=== PATIENT | female | born 1950 | race Two or more races ===

== ENCOUNTER 2023-02-27 00:21 | Inpatient (IN) | payer OTHER ==
[~2023-02-27] VITALS: Ht 162.6 cm; Wt 120.6 kg
[2023-02-27] MEDS ORDERED: PIPERACILLIN-TAZOB 3.375GM 100 ML IV ONE (00:45)
[2023-02-27] MEDS ORDERED: IBUPROFEN 600 MG TAB PO ONE (00:45)
[2023-02-27] MEDS ORDERED: LACTATED RINGER'S 2,750 ML IV ONE (00:45)
[2023-02-27] MEDS ORDERED: VANCOMYCIN 1GM/250ML 250 ML IV ONE (00:45)
[2023-02-27] MEDS ORDERED: ACETAMINOPHEN 500 MG TAB PO ONE ×2 (00:45)
[2023-02-27 01:08] LABS: White Blood Cell 9.9 10^3/uL (4.4-10.8)
[2023-02-27 01:09] LABS: Hematocrit 43.6 % (36.0-46.0); Mean Corpuscular Hemoglobin 34.4 pg (28.0-32.0); Mean Corpuscular Hgb Conc. 34.3 g/dL (32.0-36.0); Mean Corpuscular Volume 100.1 fL (80.0-100.0); Red Blood Cells 4.35 10^6/uL (4.0-5.20); Red Cell Distribution Width 15.5 % (11.8-14.3)
[2023-02-27 01:23] LABS: Basophils % (manual) 0 (0.0-2.0); Blast Cells 0; Eosinophils % (manual) 0 (0-7); Metamyelocytes % 0; Myelocytes % 0; Promyelocytes % 0; Reactive Lymphocytes 0
[2023-02-27 01:24] LABS: Alanine Aminotransferase 28 U/L (7-40); Albumin 3.6 g/dL (3.2-4.8); Alkaline Phosphatase 143 U/L (46-116); Anion Gap 11 (5-15); Aspartate Aminotransferase 52 U/L (13-40); BUN/Creatinine Ratio 9.2 (10.0-20.0); Blood Urea Nitrogen 11 mg/dL (9-23); Calcium 8.9 mg/dL (8.7-10.4); Carbon Dioxide 20 mmol/L (20-30); Chloride 110 mmol/L (98-107); Glucose 116 mg/dL (74-106); Sodium 141 mmol/L (136-145)
[2023-02-27 01:25] LABS: Bilirubin, Total 3.7 mg/dL (0.2-1.0); Lactic Acid w/Reflex 4.8 mmol/L (0.4-2.0); Total Protein 7.2 g/dL (5.7-8.2)
[2023-02-27 01:29] LABS: Potassium 2.9 mmol/L (3.5-5.1)
[2023-02-27 01:30] LABS: Rapid Influenza A Negative (Negative); Rapid Influenza B Negative (Negative)
[2023-02-27 01:31] LABS: COVID19 ANTIGEN SOFIA FIA NEGATIVE (NEGATIVE)
[2023-02-27 01:57] LABS: Band Neutrophils % (manual) 21; Large Platelets FEW; Lymphocytes % (manual) 1 (10.0-50.0); Monocytes % (manual) 1 (0-12); Platelet Estimate Decreased
[2023-02-27] MEDS: POTASSIUM CHL 20MEQ/100ML 100 ML IV SCH ×2 (02:46→05:15)
[2023-02-27] MEDS ORDERED: POTASSIUM CHL 20 Meq TABLET PO ONE (04:30)
[2023-02-27 05:07] LABS: Lactic Acid w/Reflex 3.5 mmol/L (0.4-2.0)
[2023-02-27] MEDS ORDERED: ENOXAPARIN SOD 100 MG/1 ML SYRINGE SC ONE (05:30)
[2023-02-27 05:56] LABS: Urine Bacteria MOD /hpf (None Seen); Urine Blood TRACE /uL (Negative); Urine Clarity HAZY (Clear); Urine Color Yellow (Yellow); Urine Protein, UAD 1+ (Negative); Urine Specific Gravity 1.007 (1.001-1.035); Urine Urobilinogen Normal (Negative); Urine WBC 117 /hpf (0 - 5); Urine WBC Clumps PRESENT /hpf (None Seen)
[2023-02-27] MEDS ORDERED: NITROGLYCERIN 0.4 MG SL TAB SL PRN (07:00)
[2023-02-27] MEDS ORDERED: ONDANSETRON HCL 4 MG/2 ML VIAL IV PRN (07:00)
[2023-02-27] MEDS ORDERED: MORPHINE SULFATE INJ 2 MG/ml SYRG IV PRN (07:00)
[2023-02-27 08:00] VITALS: RESP 21; O2SAT 93
[2023-02-27] MEDS: SODIUM CHLORIDE 0.9% 1,000 ML IV SCH ×3 (08:10→23:40)
[2023-02-27 08:30] LABS: Chloride 111 mmol/L (98-107); Potassium 3.6 mmol/L (3.5-5.1); Sodium 141 mmol/L (136-145)
[2023-02-27 08:31] LABS: Anion Gap 9 (5-15); Calcium 8.4 mg/dL (8.5-10.1); Carbon Dioxide 21 mmol/L (20-30)
[2023-02-27 08:36] LABS: BUN/Creatinine Ratio 8.7 (10.0-20.0); Blood Urea Nitrogen 12 mg/dL (9-23); Glucose 141 mg/dL (74-106)
[2023-02-27] MEDS ORDERED: ALEN35TA18 PO (11:10)
[2023-02-27] MEDS ORDERED: VENL1TAB97 PO (11:10)
[2023-02-27] MEDS ORDERED: PRE1T PO (11:10)
[2023-02-27] MEDS ORDERED: AZAT50TA43 PO (11:10)
[2023-02-27] MEDS ORDERED: MET25T PO (11:10)
[2023-02-27] MEDS ORDERED: LOSA100T58 PO (11:10)
[2023-02-27 12:30] VITALS: BP 94/60; PULSE 86; RESP 23; TEMP 97.7; O2SAT 95
[2023-02-27] MEDS: PIPERACILLIN-TAZOB 3.375GM 100 ML IV SCH ×2 (13:46→21:59)
[2023-02-27] MEDS: ACETAMINOPHEN 325 MG TAB PO PRN (16:30)
[2023-02-27 16:35] VITALS: BP 114/63; PULSE 85; RESP 22; TEMP 97.5; O2SAT 95
[2023-02-27 20:00] VITALS: PULSE 77
[2023-02-27 22:00] VITALS: BP 117/67; PULSE 71; RESP 19; TEMP 97.5; O2SAT 97
[2023-02-28] VITALS (11 sets, daily range): BP systolic 114–170; BP diastolic 50–74; PULSE 80–120; RESP 17–22; TEMP 97.8–98.9; O2SAT 95–99
[2023-02-28] MEDS ORDERED: TEMAZEPAM 15 MG CAP PO ONE (01:15)
[2023-02-28] MEDS: PIPERACILLIN-TAZOB 3.375GM 100 ML IV SCH ×3 (05:28→21:23)
[2023-02-28 06:04] LABS: Anion Gap 7 (5-15); Calcium 7.8 mg/dL (8.7-10.4); Carbon Dioxide 22 mmol/L (20-30); Chloride 114 mmol/L (98-107); Potassium 3.6 mmol/L (3.5-5.1); Sodium 143 mmol/L (136-145)
[2023-02-28 06:10] LABS: BUN/Creatinine Ratio 16.4 (10.0-20.0); Blood Urea Nitrogen 21 mg/dL (9-23); Glucose 105 mg/dL (74-106)
[2023-02-28] MEDS: SODIUM CHLORIDE 0.9% 1,000 ML IV SCH ×2 (08:00→10:40)
[2023-02-28 08:22] LABS: Basophils # (auto) 0 10 ^3/uL (0-0.2); Basophils % (auto) 0.4 % (0.0-2.0); Eosinophils # (auto) 0.3 10 ^3/uL (0-0.8); Eosinophils % (auto) 3.2 % (0.0-7.0); Hematocrit 38.8 % (36.0-46.0); Lymphocytes # (auto) 0.2 10 ^3/uL (0.4-5.4); Lymphocytes % (auto) 2.5 % (10.0-50.0); Mean Corpuscular Hemoglobin 33.6 pg (28.0-32.0); Mean Corpuscular Hgb Conc. 33.4 g/dL (32.0-36.0); Mean Corpuscular Volume 100.6 fL (80.0-100.0); Monocytes # (auto) 0.7 10 ^3/uL (0-1.3); Monocytes % (auto) 7.1 % (0.0-12.0); Neutrophils # (auto) 8.5 10 ^3/uL (1.6-8.6); Neutrophils % (auto) 86.8 % (37.0-80.0); Nucleated Red Blood Cells % 0.1 %; Red Blood Cells 3.86 10^6/uL (4.0-5.20); Red Cell Distribution Width 16.2 % (11.8-14.3); White Blood Cell 9.8 10^3/uL (4.4-10.8)
[2023-02-28] MEDS ORDERED: ENOXAPARIN SOD 40 MG/0.4 ML SYRINGE SC SCH (10:00)
[2023-02-28] MEDS: ACETAMINOPHEN 325 MG TAB PO PRN (10:34)
[2023-02-28] MEDS ORDERED: AZAT50TA6 PO (14:09)
[2023-02-28] MEDS ORDERED: VENL1TAB99 PO (14:10)
[2023-02-28] MEDS ORDERED: FLUT100I PO (14:24)
[2023-02-28] MEDS: LACTATED RINGER'S 1,000 ML IV SCH ×2 (16:48→21:15)
[2023-02-28] MEDS: ALBUTEROL SULF 2.5 MG/0.5ML(0.5%) NEB SOLN NEB SCH (18:48)
[2023-02-28] MEDS: METOPROLOL TARTRATE 25 MG TAB PO SCH (21:31)
[2023-02-28] MEDS ORDERED: VENLAFAXINE HCL 37.5MG TABLET PO ONE ×2 (23:30→23:50)
[2023-03-01] VITALS (15 sets, daily range): BP systolic 106–169; BP diastolic 63–94; PULSE 62–110; RESP 18–24; TEMP 98–99; O2SAT 88–99
[2023-03-01] MEDS: ALBUTEROL SULF 2.5 MG/0.5ML(0.5%) NEB SOLN NEB SCH ×4 (00:11→19:41)
[2023-03-01] MEDS ORDERED: LORazepam 2MG/ML-1ML VIAL IV ONE (00:15)
[2023-03-01 00:37] LABS: Base Excess -5.3 mmol/L (-2.0-2.0)
[2023-03-01] MEDS: PIPERACILLIN-TAZOB 3.375GM 100 ML IV SCH ×3 (05:28→22:48)
[2023-03-01] MEDS: LACTATED RINGER'S 1,000 ML IV SCH ×3 (05:28→22:48)
[2023-03-01 06:06] LABS: Basophils # (auto) 0.1 10 ^3/uL (0-0.2); Basophils % (auto) 0.5 % (0.0-2.0); Eosinophils # (auto) 0 10 ^3/uL (0-0.8); Eosinophils % (auto) 0.3 % (0.0-7.0); Hematocrit 35.6 % (36.0-46.0); Hemoglobin 12.1 g/dL (12.2-16.2); Lymphocytes # (auto) 0.3 10 ^3/uL (0.4-5.4); Lymphocytes % (auto) 2.8 % (10.0-50.0); Mean Corpuscular Volume 99.8 fL (80.0-100.0); Monocytes # (auto) 0.9 10 ^3/uL (0-1.3); Monocytes % (auto) 7.9 % (0.0-12.0); Neutrophils # (auto) 9.6 10 ^3/uL (1.6-8.6); Neutrophils % (auto) 88.5 % (37.0-80.0); Red Blood Cells 3.57 10^6/uL (4.0-5.20); White Blood Cell 10.8 10^3/uL (4.4-10.8)
[2023-03-01 06:25] LABS: Anion Gap 8 (5-15); Carbon Dioxide 21 mmol/L (20-30); Chloride 113 mmol/L (98-107); Potassium 3.7 mmol/L (3.5-5.1); Sodium 142 mmol/L (136-145)
[2023-03-01 06:26] LABS: Calcium 8.3 mg/dL (8.5-10.1)
[2023-03-01 06:31] LABS: BUN/Creatinine Ratio 14.2 (10.0-20.0); Blood Urea Nitrogen 16 mg/dL (9-23); Glucose 149 mg/dL (74-106)
[2023-03-01] MEDS: azaTHIOprine 50 MG TAB PO SCH (10:00)
[2023-03-01] MEDS ORDERED: predniSONE 1 MG TAB PO SCH (10:00)
[2023-03-01] MEDS: METOPROLOL TARTRATE 25 MG TAB PO SCH ×2 (10:52→22:48)
[2023-03-01] MEDS ORDERED: LEVO500T91 PO (17:44)
[2023-03-01] MEDS ORDERED: ALBUAER3 IN (18:53)
[2023-03-01] MEDS ORDERED: METH4PAK PO (18:53)
[2023-03-01] MEDS ORDERED: VENLAFAXINE HCL 37.5MG TABLET PO SCH (22:00)
[2023-03-01] MEDS: methylPREDNISolone SOD SUCC 125 MG/2 ML VL IV SCH (23:07)
[2023-03-02] VITALS (13 sets, daily range): BP systolic 132–145; BP diastolic 69–89; PULSE 68–97; RESP 18–22; TEMP 97.9–98.3; O2SAT 95–99
[2023-03-02] MEDS: ALBUTEROL SULF 2.5 MG/0.5ML(0.5%) NEB SOLN NEB SCH ×3 (00:26→11:28)
[2023-03-02] MEDS: PIPERACILLIN-TAZOB 3.375GM 100 ML IV SCH ×2 (05:13→14:00)
[2023-03-02] MEDS: methylPREDNISolone SOD SUCC 125 MG/2 ML VL IV SCH ×2 (05:13→12:57)
[2023-03-02] MEDS: LACTATED RINGER'S 1,000 ML IV SCH ×2 (05:14→13:15)
[2023-03-02] MEDS ORDERED: HYDR25TA4 PO (06:34)
[2023-03-02 07:34] LABS: Basophils # (auto) 0 10 ^3/uL (0-0.2); Basophils % (auto) 0.1 % (0.0-2.0); Eosinophils # (auto) 0 10 ^3/uL (0-0.8); Hematocrit 36.7 % (36.0-46.0); Hemoglobin 12.6 g/dL (12.2-16.2); Lymphocytes # (auto) 0.1 10 ^3/uL (0.4-5.4); Lymphocytes % (auto) 2.3 % (10.0-50.0); Mean Corpuscular Hemoglobin 33.9 pg (28.0-32.0); Mean Corpuscular Hgb Conc. 34.2 g/dL (32.0-36.0); Monocytes # (auto) 0.2 10 ^3/uL (0-1.3); Monocytes % (auto) 3.1 % (0.0-12.0); Neutrophils % (auto) 94.5 % (37.0-80.0); Nucleated Red Blood Cells % 0.1 %; Red Blood Cells 3.71 10^6/uL (4.0-5.20); Red Cell Distribution Width 15.8 % (11.8-14.3); White Blood Cell 6.3 10^3/uL (4.4-10.8)
[2023-03-02 08:05] LABS: Anion Gap 11 (5-15); Carbon Dioxide 22 mmol/L (20-30); Chloride 109 mmol/L (98-107); Sodium 142 mmol/L (136-145)
[2023-03-02 08:11] LABS: BUN/Creatinine Ratio 20.8 (10.0-20.0); Blood Urea Nitrogen 21 mg/dL (9-23); Glucose 208 mg/dL (74-106)
[2023-03-02] MEDS: azaTHIOprine 50 MG TAB PO SCH (09:41)
[2023-03-02] MEDS: METOPROLOL TARTRATE 25 MG TAB PO SCH (09:41)
== END 2023-03-02 16:35 | disposition home or self-care (01) | DRG 690 ==
LOC: EDBD 00:21 → ER 00:21 → TELE 06:55 → TELE-WESTW 10:15 → OBSVTOIN 02-28 11:20
PROVIDERS: ADMIT Hospitalist; ATTEND Student in an Organized Health Care Education/Training Program
PROC: 05HD33Z Insertion of Infusion Device into Right Cephalic Vein, Percutaneous Approach (ICD-10-PCS; principal; 2023-02-28)
PROC: B54MZZA Ultrasonography of Right Upper Extremity Veins, Guidance (ICD-10-PCS; 2023-02-28)
DX: N39.0 Urinary tract infection, site not specified (principal); Z68.42 Body mass index [BMI] 45.0-49.9, adult; I24.89 Other forms of acute ischemic heart disease; R65.10 Systemic inflammatory response syndrome (SIRS) of non-infectious origin without acute organ dysfunction; R78.81 Bacteremia; D69.6 Thrombocytopenia, unspecified; E66.9 Obesity, unspecified; F32.9 Major depressive disorder, single episode, unspecified; G47.30 Sleep apnea, unspecified; K21.9 Gastro-esophageal reflux disease without esophagitis; R79.89 Other specified abnormal findings of blood chemistry; Z20.822 Contact with and (suspected) exposure to COVID-19; B96.1 Klebsiella pneumoniae [K. pneumoniae] as the cause of diseases classified elsewhere; E86.0 Dehydration; N18.30 Chronic kidney disease, stage 3 unspecified; J44.9 Chronic obstructive pulmonary disease, unspecified; E87.6 Hypokalemia; I12.9 Hypertensive chronic kidney disease with stage 1 through stage 4 chronic kidney disease, or unspecified chronic kidney disease; J06.9 Acute upper respiratory infection, unspecified; K74.60 Unspecified cirrhosis of liver; K75.4 Autoimmune hepatitis; R32 Unspecified urinary incontinence; Z90.710 Acquired absence of both cervix and uterus; Z88.1 Allergy status to other antibiotic agents
CPT/HCPCS: 36415; 36600; 71045; 80048; 80053; 81001; 82805; 83605; 83735; 84484; 85007; 85025; 85027; 85379; 87040; 87077; 87081; 87086; 87088; 87186; 87426; 87804; 93005; 93306; 94640; 96365; 99291; G0378; J2543; J3480

== ENCOUNTER 2023-09-04 15:51 | Inpatient (IN) | payer OTHER ==
[~2023-09-04] VITALS: Ht 167.6 cm; Wt 122.0 kg
[~2023-09-04 15:51] MED LIST: ALBUAER3 IN; AZAT50TA35 PO; FLUT100I PO; HYDR25TA4 PO; LEVO500T91 PO; LOSA-535 PO; MET25T PO; METH4PAK PO; PRE1T PO; VENL1TAB99 PO
[2023-09-04 16:35] VITALS: PULSE 82; RESP 14; O2SAT 94
[2023-09-04] MEDS: cefTRIAXone 1GM/50ML D5W 50 ML IV ONE ×2 (16:40→16:46)
[2023-09-04] MEDS: SODIUM CHLORIDE 0.9% 1,800 ML IV ONE (16:40)
[2023-09-04] MEDS: ACCU-CHEK COMFORT CURVE STRIP VI ONE (16:45)
[2023-09-04] MEDS: VANCOMYCIN 1GM/200ML 200 ML IV ONE (17:00)
[2023-09-04 17:18] LABS: Basophils # (auto) 0.1 10 ^3/uL (0-0.2); Eosinophils # (auto) 0.6 10 ^3/uL (0-0.8); Hemoglobin 9.9 g/dL (12.2-16.2); Lymphocytes # (auto) 0.6 10 ^3/uL (0.4-5.4); Monocytes # (auto) 0.6 10 ^3/uL (0-1.3); Monocytes % (auto) 6.7 % (0.0-12.0); Nucleated Red Blood Cells % 0.1 %
[2023-09-04 17:20] LABS: Basophils % (auto) 0.8 % (0.0-2.0); Eosinophils % (auto) 6.4 % (0.0-7.0); Hematocrit 29.5 % (36.0-46.0); Lymphocytes % (auto) 6.4 % (10.0-50.0); Mean Corpuscular Hemoglobin 34.7 pg (28.0-32.0); Mean Corpuscular Hgb Conc. 33.5 g/dL (32.0-36.0); Mean Corpuscular Volume 103.6 fL (80.0-100.0); Neutrophils # (auto) 7.3 10 ^3/uL (1.6-8.6); Neutrophils % (auto) 79.7 % (37.0-80.0); Red Blood Cells 2.85 10^6/uL (4.0-5.20); Red Cell Distribution Width 19.6 % (11.8-14.3); White Blood Cell 9.2 10^3/uL (4.4-10.8)
[2023-09-04 17:35] LABS: Albumin 2.1 g/dL (3.2-4.8); Alkaline Phosphatase 72 U/L (46-116); Anion Gap 10 (5-15); Aspartate Aminotransferase 24 U/L (13-40); BUN/Creatinine Ratio 9.6 (10.0-20.0); Bilirubin, Total 2.8 mg/dL (0.2-1.0); Blood Urea Nitrogen 13 mg/dL (9-23); Calcium 7.8 mg/dL (8.5-10.1); Carbon Dioxide 21 mmol/L (20-30); Chloride 108 mmol/L (98-107); Glucose 99 mg/dL (74-106); Potassium 3.3 mmol/L (3.5-5.1); Sodium 139 mmol/L (136-145); Total Protein 6.3 g/dL (5.7-8.2)
[2023-09-04 17:40] LABS: Alanine Aminotransferase 9 U/L (7-40)
[2023-09-04 17:50] LABS: Lactic Acid w/Reflex 2.1 mmol/L (0.4-2.0)
[2023-09-04 19:15] LABS: Urine Bacteria FEW /hpf (None Seen); Urine Blood 1+ /uL (Negative); Urine Budding Yeast FEW /hpf (None Seen); Urine Clarity Turbid (Clear); Urine Color Yellow (Yellow); Urine Mucus FEW (None Seen); Urine Protein, UAD Negative (Negative); Urine Specific Gravity 1.018 (1.001-1.035); Urine Urobilinogen Normal (Negative); Urine WBC 288 /hpf (0 - 5); Urine WBC Clumps PRESENT /hpf (None Seen)
[2023-09-04] MEDS: SODIUM CHLORIDE 0.9% 1,000 ML IV ONE ×2 (20:32→22:11)
[2023-09-04 21:14] LABS: Amphetamine Screen, Urine Neg (NEGATIVE); Barbiturate Scree,Urine Neg (NEGATIVE); Benzodiazephine Screen, Urine Neg (NEGATIVE); Cannabinoid Screen, Urine Neg (NEGATIVE); Cocaine Screen, Urine Neg (NEGATIVE); Opiate Scree,Urine Neg (NEGATIVE); Phencyclidine Screen, Urine Neg (NEGATIVE)
[2023-09-04] MEDS ORDERED: ONDANSETRON HCL 4 MG/2 ML VIAL IV PRN (22:00)
[2023-09-04] MEDS ORDERED: NITROGLYCERIN 0.4 MG SL TAB SL PRN (22:00)
[2023-09-04] MEDS: NOREPINEPHRINE 8 MG/250ML KIT 250 ML IV ONE (22:11)
[2023-09-04] MEDS: NOREPINEPHRINE 8 MG/250ML KIT 250 ML IV SCH (22:11)
[2023-09-04] MEDS: POTASSIUM CHL 20MEQ/100ML 100 ML IV ONE (23:11)
[2023-09-04 23:12] LABS: INR 1.42 (0.9-1.15); Prothrombin Time 14.6 sec (9.3-11.8)
[2023-09-04 23:20] VITALS: PULSE 111; RESP 14; O2SAT 96
[2023-09-04] MEDS: SOD CHL 0.45% 1,000 ML IV ONE (23:31)
[2023-09-04] MEDS: CIPROFLOXACIN 400MG/200ML 200 ML IV ONE (23:32)
[2023-09-04] MEDS: methylPREDNISolone SOD SUCC 125 MG/2 ML VL IV SCH (23:32)
[2023-09-05 05:35] LABS: COVID19 ANTIGEN SOFIA FIA NEGATIVE (NEGATIVE); Rapid Influenza A Negative (Negative); Rapid Influenza B Negative (Negative)
[2023-09-05] MEDS: VANCOMYCIN HCL 250 MG CAP PO SCH (06:00)
[2023-09-05] MEDS: metroNIDAZOLE 500MG/100ML 100 ML IV SCH (06:30)
[2023-09-05 07:37] VITALS: PULSE 113; RESP 12; O2SAT 93
[2023-09-05 07:48] LABS: Alkaline Phosphatase 79 U/L (46-116); Anion Gap 10 (5-15); BUN/Creatinine Ratio 7.7 (10.0-20.0); Blood Urea Nitrogen 13 mg/dL (9-23); Calcium 7.7 mg/dL (8.5-10.1); Carbon Dioxide 17 mmol/L (20-30); Chloride 105 mmol/L (98-107); Glucose 277 mg/dL (74-106); Potassium 3.7 mmol/L (3.5-5.1)
[2023-09-05 07:49] LABS: Albumin 2.4 g/dL (3.2-4.8); Aspartate Aminotransferase 29 U/L (13-40)
[2023-09-05 07:50] LABS: Bilirubin, Total 3.2 mg/dL (0.2-1.0); Total Protein 6.8 g/dL (5.7-8.2)
[2023-09-05 07:58] LABS: Hematocrit 33.5 % (36.0-46.0); Hemoglobin 11.1 g/dL (12.2-16.2); Mean Corpuscular Hemoglobin 34.5 pg (28.0-32.0); Mean Corpuscular Hgb Conc. 33.1 g/dL (32.0-36.0); Mean Corpuscular Volume 104.3 fL (80.0-100.0); Red Blood Cells 3.21 10^6/uL (4.0-5.20); Red Cell Distribution Width 19.6 % (11.8-14.3); White Blood Cell 17.5 10^3/uL (4.4-10.8)
[2023-09-05 08:01] LABS: Alanine Aminotransferase < 9 U/L (7-40); Sodium 132 mmol/L (136-145)
[2023-09-05 08:09] LABS: Band Neutrophils % (manual) 0; Basophils % (manual) 0 (0.0-2.0); Blast Cells 0; Metamyelocytes % 0; Myelocytes % 0; Promyelocytes % 0; Reactive Lymphocytes 0
[2023-09-05] MEDS: CIPROFLOXACIN 400MG/200ML 200 ML IV SCH (10:34)
[2023-09-05 12:25] LABS: Eosinophils % (manual) 3 (0-7); Lymphocytes % (manual) 4 (10.0-50.0); Monocytes % (manual) 3 (0-12); Platelet Estimate Adequate
[2023-09-05 19:30] VITALS: PULSE 89; RESP 12; O2SAT 100
[2023-09-05] MEDS: SODIUM CHLORIDE 0.9% 1,000 ML IV SCH (19:45)
[2023-09-05] MEDS ORDERED: VANCOMYCIN PER PHARMACY 0 MG IV SCH (21:30)
[2023-09-05] MEDS: VANCOMYCIN 500MG RECTAL ENEMA IN 100ML/NS PR SCH (22:00)
[2023-09-06] MEDS: VANCOMYCIN 1GM/200ML 200 ML IV ONE (00:14)
[2023-09-06 08:18] VITALS: PULSE 89; RESP 18; O2SAT 96
[2023-09-06 09:55] LABS: Basophils # (auto) 0 10 ^3/uL (0-0.2); Eosinophils # (auto) 0.1 10 ^3/uL (0-0.8); Hemoglobin 8.2 g/dL (12.2-16.2); Monocytes # (auto) 0.4 10 ^3/uL (0-1.3); Red Cell Distribution Width 19.8 % (11.8-14.3)
[2023-09-06 09:57] LABS: Basophils % (auto) 0.3 % (0.0-2.0); Eosinophils % (auto) 2.3 % (0.0-7.0); Lymphocytes # (auto) 0.4 10 ^3/uL (0.4-5.4); Lymphocytes % (auto) 7.3 % (10.0-50.0); Mean Corpuscular Hemoglobin 35.3 pg (28.0-32.0); Mean Corpuscular Hgb Conc. 34.1 g/dL (32.0-36.0); Mean Corpuscular Volume 103.7 fL (80.0-100.0); Monocytes % (auto) 6.1 % (0.0-12.0); Neutrophils # (auto) 5.1 10 ^3/uL (1.6-8.6); Nucleated Red Blood Cells % 0.1 %; Red Blood Cells 2.31 10^6/uL (4.0-5.20); White Blood Cell 6.1 10^3/uL (4.4-10.8)
[2023-09-06 10:13] LABS: Alkaline Phosphatase 64 U/L (46-116); Anion Gap 5 (5-15); Aspartate Aminotransferase 24 U/L (13-40); BUN/Creatinine Ratio 9.9 (10.0-20.0); Blood Urea Nitrogen 18 mg/dL (9-23); Calcium 7.5 mg/dL (8.5-10.1); Carbon Dioxide 20 mmol/L (20-30); Chloride 112 mmol/L (98-107); Glucose 99 mg/dL (74-106); Potassium 3.2 mmol/L (3.5-5.1); Sodium 137 mmol/L (136-145)
[2023-09-06 10:14] LABS: Bilirubin, Total 1.4 mg/dL (0.2-1.0); Total Protein 5.7 g/dL (5.7-8.2)
[2023-09-06 10:22] LABS: Alanine Aminotransferase < 9 U/L (7-40)
[2023-09-06 10:30] VITALS: BP 102/52; PULSE 80; RESP 20; TEMP 97.4; O2SAT 99
[2023-09-06] MEDS: CEFEPIME 2GM/50ML NS 50 ML IV SCH (11:44)
[2023-09-06] MEDS ORDERED: VENL-194 PO (12:32)
[2023-09-06] MEDS ORDERED: MECL12.586 PO (13:20)
[2023-09-06] MEDS ORDERED: ALEN35TA18 PO (13:20)
[2023-09-06] MEDS ORDERED: PER60TP TOP (13:20)
[2023-09-06] MEDS ORDERED: GABA-339 PO (13:20)
[2023-09-06] MEDS ORDERED: MUPI2OIN2 EX (13:20)
[2023-09-06] MEDS ORDERED: TRIA0.5O2 TOP (13:20)
[2023-09-06] MEDS ORDERED: GASTROGRAFIN 120 ML SOL ONE (13:32)
[2023-09-06 17:00] VITALS: BP 118/48; PULSE 81; RESP 18; TEMP 100.6; O2SAT 94
[2023-09-06 20:00] VITALS: PULSE 102
[2023-09-06] MEDS: VANCOMYCIN 1GM/200ML 200 ML IV SCH (21:24)
[2023-09-06 22:00] VITALS: BP 153/62; PULSE 99; RESP 18; TEMP 97.5; O2SAT 95
[2023-09-07 01:00] VITALS: BP 109/47; PULSE 102; RESP 21; TEMP 97.6; O2SAT 98
[2023-09-07 05:00] VITALS: BP 113/47; PULSE 103; RESP 17; TEMP 98; O2SAT 97
[2023-09-07] MEDS: LOPERAMIDE HCL 2 MG CAP/TAB PO PRN (07:07)
[2023-09-07 08:00] VITALS: PULSE 108; RESP 18
[2023-09-07 09:00] VITALS: BP 125/53; PULSE 107; RESP 16; TEMP 97.6; O2SAT 99
[2023-09-07 10:07] LABS: Eosinophils # (auto) 0.2 10 ^3/uL (0-0.8); Eosinophils % (auto) 3.4 % (0.0-7.0); Lymphocytes # (auto) 0.4 10 ^3/uL (0.4-5.4); Monocytes # (auto) 0.4 10 ^3/uL (0-1.3)
[2023-09-07 10:10] LABS: Basophils # (auto) 0 10 ^3/uL (0-0.2); Basophils % (auto) 0.6 % (0.0-2.0); Lymphocytes % (auto) 7.2 % (10.0-50.0); Mean Corpuscular Hemoglobin 34.9 pg (28.0-32.0); Mean Corpuscular Hgb Conc. 33.2 g/dL (32.0-36.0); Mean Corpuscular Volume 105.1 fL (80.0-100.0); Neutrophils # (auto) 4.4 10 ^3/uL (1.6-8.6); Neutrophils % (auto) 81.8 % (37.0-80.0); Red Blood Cells 2.28 10^6/uL (4.0-5.20); Red Cell Distribution Width 19.7 % (11.8-14.3); White Blood Cell 5.4 10^3/uL (4.4-10.8)
[2023-09-07 10:28] LABS: Alkaline Phosphatase 65 U/L (46-116); Anion Gap 10 (5-15); Aspartate Aminotransferase 27 U/L (13-40); BUN/Creatinine Ratio 12.7 (10.0-20.0); Blood Urea Nitrogen 22 mg/dL (9-23); Calcium 7.7 mg/dL (8.5-10.1); Carbon Dioxide 18 mmol/L (20-30); Chloride 115 mmol/L (98-107); Glucose 97 mg/dL (74-106); Sodium 143 mmol/L (136-145)
[2023-09-07 10:29] LABS: Bilirubin, Total 1.5 mg/dL (0.2-1.0); Total Protein 5.7 g/dL (5.7-8.2)
[2023-09-07 10:51] LABS: Alanine Aminotransferase < 9 U/L (7-40)
[2023-09-07 13:00] VITALS: BP 110/67; PULSE 65; RESP 20; TEMP 98; O2SAT 95
[2023-09-07] MEDS: POTASSIUM CHL 20 Meq TABLET PO ONE (13:03)
[2023-09-07 15:31] LABS: Hemoglobin 8.1 g/dL (12.2-16.2); Neutrophils % (auto) 81.8 % (37.0-80.0)
[2023-09-07 15:33] LABS: Basophils # (auto) 0.1 10 ^3/uL (0-0.2); Basophils % (auto) 0.8 % (0.0-2.0); Eosinophils # (auto) 0.2 10 ^3/uL (0-0.8); Eosinophils % (auto) 3.6 % (0.0-7.0); Hematocrit 23.9 % (36.0-46.0); Lymphocytes # (auto) 0.4 10 ^3/uL (0.4-5.4); Lymphocytes % (auto) 6.7 % (10.0-50.0); Mean Corpuscular Hemoglobin 35.1 pg (28.0-32.0); Mean Corpuscular Hgb Conc. 33.8 g/dL (32.0-36.0); Mean Corpuscular Volume 103.6 fL (80.0-100.0); Monocytes # (auto) 0.5 10 ^3/uL (0-1.3); Monocytes % (auto) 7.1 % (0.0-12.0); Neutrophils # (auto) 5.3 10 ^3/uL (1.6-8.6); Nucleated Red Blood Cells % 0.1 %; Red Blood Cells 2.31 10^6/uL (4.0-5.20); Red Cell Distribution Width 19.7 % (11.8-14.3); White Blood Cell 6.5 10^3/uL (4.4-10.8)
[2023-09-07] MEDS ORDERED: LOPE-20 PO (15:40)
[2023-09-07] MEDS ORDERED: OMEP-434 PO (15:40)
[2023-09-07 17:00] VITALS: BP 102/52; PULSE 57; RESP 19; TEMP 97.5; O2SAT 93
[2023-09-07] MEDS ORDERED: PANTOPRAZOLE 40 MG/10 ML VIAL INJ IV SCH (22:00)
== END 2023-09-07 20:15 | disposition home health service (06) | DRG 871 ==
LOC: ER 15:51 → EDBD 15:51 → TELE 21:55 → TELE-WESTW 09-06 10:28
PROVIDERS: ADMIT Internal Medicine; ATTEND Internal Medicine
DX: A41.01 Sepsis due to Methicillin susceptible Staphylococcus aureus (principal); J96.01 Acute respiratory failure with hypoxia; R65.21 Severe sepsis with septic shock; R57.1 Hypovolemic shock; N17.0 Acute kidney failure with tubular necrosis; G61.0 Guillain-Barre syndrome; Z68.41 Body mass index [BMI] 40.0-44.9, adult; E66.01 Morbid (severe) obesity due to excess calories; E78.5 Hyperlipidemia, unspecified; I12.9 Hypertensive chronic kidney disease with stage 1 through stage 4 chronic kidney disease, or unspecified chronic kidney disease; I25.10 Atherosclerotic heart disease of native coronary artery without angina pectoris; J44.89 Other specified chronic obstructive pulmonary disease; K74.60 Unspecified cirrhosis of liver; N18.9 Chronic kidney disease, unspecified; Z86.19 Personal history of other infectious and parasitic diseases; Z82.49 Family history of ischemic heart disease and other diseases of the circulatory system; Z82.3 Family history of stroke; Z86.73 Personal history of transient ischemic attack (TIA), and cerebral infarction without residual deficits; Z87.440 Personal history of urinary (tract) infections; Z79.899 Other long term (current) drug therapy; D63.1 Anemia in chronic kidney disease
CPT/HCPCS: 36415; 70450; 71045; 74176; 74250; 80053; 80307; 81001; 82270; 82962; 83605; 84484; 85007; 85025; 85027; 85610; 87040; 87077; 87186; 87426; 87493; 87804; 96361; 96365; 96375; G0378; J0692; J2405; J3370; J3480; J3490

== ENCOUNTER 2023-09-08 19:24 | Emergency (ER) | payer OTHER ==
[~2023-09-08] VITALS: Ht 165.1 cm; Wt 160.0 kg
[~2023-09-08 19:24] MED LIST changes: -ALBUAER3 IN; +ALEN35TA18 PO; +GABA-339 PO; -LEVO500T91 PO; +LOPE-20 PO; +MECL12.586 PO; -METH4PAK PO; +MUPI2OIN2 EX; +OMEP-434 PO; +PER60TP TOP; +TRIA0.5O2 TOP; +VENL-194 PO; -VENL1TAB99 PO
[2023-09-08 20:46] LABS: Hemoglobin 8.5 g/dL (12.2-16.2); Lymphocytes # (auto) 0.6 10 ^3/uL (0.4-5.4); Monocytes # (auto) 0.4 10 ^3/uL (0-1.3); Neutrophils # (auto) 4.6 10 ^3/uL (1.6-8.6)
[2023-09-08 20:48] LABS: Basophils # (auto) 0 10 ^3/uL (0-0.2); Basophils % (auto) 0.6 % (0.0-2.0); Eosinophils # (auto) 0.3 10 ^3/uL (0-0.8); Eosinophils % (auto) 5.4 % (0.0-7.0); Hematocrit 25.1 % (36.0-46.0); Lymphocytes % (auto) 10.6 % (10.0-50.0); Mean Corpuscular Hemoglobin 34.2 pg (28.0-32.0); Mean Corpuscular Hgb Conc. 33.8 g/dL (32.0-36.0); Mean Corpuscular Volume 101.3 fL (80.0-100.0); Neutrophils % (auto) 76.4 % (37.0-80.0); Red Blood Cells 2.47 10^6/uL (4.0-5.20); White Blood Cell 6.1 10^3/uL (4.4-10.8)
[2023-09-08 20:51] VITALS: TEMP 98.2
[2023-09-08 21:01] LABS: Albumin 2.3 g/dL (3.2-4.8); Alkaline Phosphatase 81 U/L (46-116); Anion Gap 7 (5-15); Aspartate Aminotransferase 30 U/L (13-40); BUN/Creatinine Ratio 20.3 (10.0-20.0); Blood Alcohol < 3.0 mg/dL (<10); Blood Urea Nitrogen 26 mg/dL (9-23); Carbon Dioxide 22 mmol/L (20-30); Chloride 116 mmol/L (98-107); Glucose 122 mg/dL (74-106); INR 1.52 (0.9-1.15); Partial Thromboplastin Time 31.2 SEC (24.5-34.5); Potassium 3.2 mmol/L (3.5-5.1); Prothrombin Time 15.6 sec (9.3-11.8); Sodium 145 mmol/L (136-145); Total Protein 6.1 g/dL (5.7-8.2)
[2023-09-08 21:10] LABS: Alanine Aminotransferase < 9 U/L (7-40)
[2023-09-08 21:14] LABS: Urine Bacteria None Seen /hpf (None Seen)
[2023-09-08 21:37] LABS: Urine Blood 2+ /uL (Negative); Urine Budding Yeast OCCASIONAL /hpf (None Seen); Urine Clarity Clear (Clear); Urine Color Yellow (Yellow); Urine Mucus FEW (None Seen); Urine Protein, UAD 1+ (Negative); Urine Specific Gravity 1.016 (1.001-1.035); Urine Urobilinogen Normal (Negative); Urine WBC 47 /hpf (0 - 5)
[2023-09-08 21:42] LABS: Amphetamine Screen, Urine Neg (NEGATIVE); Barbiturate Scree,Urine Neg (NEGATIVE); Benzodiazephine Screen, Urine Neg (NEGATIVE); Cocaine Screen, Urine Neg (NEGATIVE); Opiate Scree,Urine Neg (NEGATIVE); Phencyclidine Screen, Urine Neg (NEGATIVE)
[2023-09-08 21:43] LABS: Cannabinoid Screen, Urine Neg (NEGATIVE)
[2023-09-09] MEDS: levoFLOXacin 500MG 100 ML IV ONE (00:08)
[2023-09-09] MEDS: SODIUM CHLORIDE 0.9% 1,000 ML IV ONE ×2 (00:39→01:43)
[2023-09-09] MEDS: POTASSIUM CHL 20MEQ/100ML 100 ML IV SCH (01:49)
[2023-09-09] MEDS: metroNIDAZOLE 500MG/100ML 100 ML IV ONE (04:58)
[2023-09-09] MEDS: PIPERACILLIN-TAZOB 3.375GM 100 ML IV ONE (06:30)
[2023-09-09] MEDS ORDERED: DOXY-447 PO (07:47)
[2023-09-09 07:50] VITALS: PULSE 97; RESP 14; O2SAT 98
[2023-09-09 08:02] LABS: Basophils # (auto) 0 10 ^3/uL (0-0.2); Basophils % (auto) 0.5 % (0.0-2.0); Eosinophils # (auto) 0.2 10 ^3/uL (0-0.8); Eosinophils % (auto) 5.3 % (0.0-7.0); Hematocrit 23.1 % (36.0-46.0); Hemoglobin 7.6 g/dL (12.2-16.2); Lymphocytes # (auto) 0.4 10 ^3/uL (0.4-5.4); Lymphocytes % (auto) 9.6 % (10.0-50.0); Mean Corpuscular Hemoglobin 34.6 pg (28.0-32.0); Mean Corpuscular Volume 104.6 fL (80.0-100.0); Monocytes # (auto) 0.3 10 ^3/uL (0-1.3); Monocytes % (auto) 7.5 % (0.0-12.0); Neutrophils # (auto) 3.4 10 ^3/uL (1.6-8.6); Neutrophils % (auto) 77.1 % (37.0-80.0); Nucleated Red Blood Cells % 0.1 %; Red Blood Cells 2.21 10^6/uL (4.0-5.20); Red Cell Distribution Width 19.9 % (11.8-14.3); White Blood Cell 4.4 10^3/uL (4.4-10.8)
[2023-09-09 08:12] LABS: Chloride 119 mmol/L (98-107); Potassium 3.2 mmol/L (3.5-5.1); Sodium 146 mmol/L (136-145)
[2023-09-09 08:13] LABS: Anion Gap 9 (5-15); Carbon Dioxide 18 mmol/L (20-30)
[2023-09-09 08:14] LABS: Calcium 7.7 mg/dL (8.5-10.1)
[2023-09-09 08:18] LABS: BUN/Creatinine Ratio 16.5 (10.0-20.0); Blood Urea Nitrogen 17 mg/dL (9-23); Glucose 106 mg/dL (74-106)
[2023-09-09 14:00] VITALS: BP 97/81; PULSE 96; RESP 16; O2SAT 98
== END 2023-09-09 17:35 | disposition home or self-care (01) ==
LOC: EDBD 19:24 → EDUNIT# 19:24 → ER 19:24
DX: N39.0 Urinary tract infection, site not specified (principal); R41.82 Altered mental status, unspecified; I10 Essential (primary) hypertension; J44.9 Chronic obstructive pulmonary disease, unspecified; Z88.8 Allergy status to other drugs, medicaments and biological substances; Z79.899 Other long term (current) drug therapy; Z86.2 Personal history of diseases of the blood and blood-forming organs and certain disorders involving the immune mechanism
CPT/HCPCS: 36415; 70450; 71045; 80048; 80053; 80307; 80320; 81001; 82140; 82962; 83605; 83735; 84484; 85025; 85610; 85730; 87040; 87086; 87088; 93005; 96361; 96365; 96366; 96367; 99285; J1956; J2543; J3480; J3490